=== PATIENT | male | born 1980 | race Caucasian/White ===

== ENCOUNTER 2017-08-08 06:34 | Day surgery (SDC) | payer OTHER ==
[~2017-08-08 06:34] MED LIST: NORCO 5-325 TA1 EACH PO
[2017-08-08] MEDS ORDERED: HYDROXYZINE PAM50 MG PO (06:47)
[2017-08-08] MEDS ORDERED: SERTRALINE HCL100 MG PO (06:47)
[2017-08-08] MEDS ORDERED: ANTACID200 MG PO (06:47)
[2017-08-08] MEDS ORDERED: ADVIL200 MG PO (06:48)
--- NOTE | 2017-08-08 12:39 | NUR ---
08/08/17 1239 Khalida Rivera 1232 PATIENT TO PACU AWAKE, BUT CONFUSED. DOES NOT HOLD STILL TO GET A BLOOD PRESSURE. DOES NOT RATE PAIN ON NUMBER SCALE, BUT DOES NOT COMPLAIN OF PAIN.
[2017-08-08] MEDS ORDERED: MAPAP325 MG PO (12:46)
[2017-08-08] MEDS ORDERED: HYDROCODON-ACE1 EA10 PO (12:46)
[2017-08-08] MEDS ORDERED: IBUPROFEN600 MG PO (12:47)
--- NOTE | 2017-08-08 13:06 | NUR ---
ICED WATER AND APPLESAUCE GIVEN. PT TOLERATES THAT WELL. [facility] OFFICERS REMAIN @ BS.
--- NOTE | 2017-08-08 14:06 | NUR ---
OFFICERS REPORT SEVERAL GLASSES OF WATER FOR PATIENT. PT DENIES URGE TO VOID.
--- NOTE | 2017-08-08 15:01 | NUR ---
OFFICERS REPORT CONTINUED FILLING OF WATER GLASS. EDUCATION DONE W/PATIENT REGARDING URGE TO VOID. PT VERBALIZES UNDERSTANDING.
--- NOTE | 2017-08-08 15:19 | NUR ---
LE 1500: PT UP TO BS W/OFFICER STANDBY. PT VOIDS 600ML CLEAR YELLOW URINE AND DENIES DIZZINESS. VERBAL DC INSTRUCTIONS GIVEN AND PT VERBALIZES UNDERSTANDING. CALL REPORT GIVEN TO ANGELA COOLEY AND HIS QUESTIONS ARE ANSWERED. PT DRESSES W/OFFICER ASSIST AND TRANSFERS SELF WELL TO FOR DC.
--- NOTE | 2017-08-19 13:40 | OR ---
[facility] [address] [place], [place] [address] Signed DATE OF PROCEDURE: 08/08/17 PREOPERATIVE DIAGNOSIS Incarcerated umbilical hernia without strangulation. POSTOPERATIVE DIAGNOSIS Incarcerated umbilical hernia without strangulation (omentum). PROCEDURE Repair of incarcerated umbilical hernia. Implantation of Prolene mesh (underlay technique). SURGEON: Sallie Howe MD. ANESTHESIA General endotracheal, Sallie Fiore ([employer] HEL[employer]) and local 20 mL of 0.25% Marcaine with epinephrine. INDICATION This 37-year-old white man is a patient of Dr. Edward Sharma, at [facility] and was found to have an incompletely reducible hernia at the umbilicus. He has not had an incision in that area. He has undergone right inguinal hernia repair elsewhere without sign of recurrence. The hernia is causing increased symptoms of pain. On that bas is, repair has been recommended. The risks of bleeding, infection, recurrent hernia, and so forth were reviewed in detail. It is anticipated the Prolene mesh would be implanted at time of operation. He understands the risks and wished to proceed. FINDINGS The fascial defect was approximately 3 cm, possibly a bit more. Incompletely reducible omental and properitoneal fat was noted. This was reduced ultimately allowing for clearance of the properitoneal space for at least 3-4 cm circumferentially. Implantation of Prolene mesh in the properitoneal space was undertaken using 0 Prolene suture and Prolene pledgets. The fascial defect was reapproximated transversely with similar technique. There were no complications. Blood loss was minimal. DESCRIPTION OF PROCEDURE The patient was brought to the operating room, given a general endotracheal anesthetic. He received preoperative antibiotic Ancef. Sequential compression device stockings were used and heparin subcutaneously administered. The abdomen was clipped and prepared with Chlorhexidine solution and draped sterilely. A curvilinear incision was made to the left aspect of the nonreducible hernia. Dissection was carried through the dermis sharply and using blunt and electrocautery dissection, the subcutaneous tissue surrounding the Electronically Signed By: SALLIE HOWE MD 08/19/17 1340 PATIENT NAME: SHERON ANAND OPERATIVE REPORT DATE OF : 84 PHYSICIAN: SALLIE HOWE MD REPORT #: [id number] REPORT IS CONFIDENTIAL AND NOT TO BE RELEASED WITHOUT AUTHORIZATION [facility] [address] [place], [place] [address] Signed hernia was undertaken. The fatty tissue appeared to be protruding through the fascial defect. The skin of the umbilicus and its dermal layer was freed from the hernia sac and manipulations of the incarcerated hernia did not readily allow for reduction. A thin membrane in the properitoneal space at the neck of the hernia sac, at the fascial defect which measured approximately 3 cm was then incised. This allowed for blunt dissection circumferentially between the properitoneal space and the over lying fascia. The fatty omentum and properitoneal fat was able to be reduced into the peritoneal cavity at that point. Circumferential freeing of the properitoneal space for at least 3-4 cm was undertaken. A segment of Prolene mesh was cut to a circular co n figuration and secured in an underlay technique with interrupted 0 Prolene sutures with Prolene pledgets. The fascia was transversely reapproximated with interrupted 0 Prolene using Prolene pledgets as well in a horizontal mattress configuration. 20 mL of 0.25% Marcaine with epinephrine was injected locally. Irrigation was undertaken. Dann's layer reapproximated with interrupted 3-0 Vicryl in multiple layers to minimize space and the skin closed with running subcuticular 3-0 Vicryl. Steri-Strips were applied as was Mepilex silver sponge dressing and an OpSite. The patient tolerated the procedure well. Blood loss was minimal. COMPLICATIONS: None. MD SRINIVAS Rockwell/Vasquez /[id number] cc: Edward Sharma MD Electronically Signed By: SALLIE HOWE MD 08/19/17 1340 PATIENT NAME: SHERON ANAND OPERATIVE REPORT DATE OF : 84 PHYSICIAN: SALLIE HOWE MD REPORT #: [id number] REPORT IS CONFIDENTIAL AND NOT TO BE RELEASED WITHOUT AUTHORIZATION
== END 2017-08-08 15:15 | disposition home or self-care (01) ==
LOC: DS 06:34
PROVIDERS: Surgery
PROC: 0WUF0JZ Supplement Abdominal Wall with Synthetic Substitute, Open Approach (ICD-10-PCS; principal; 2017-08-08 09:30)
DX: K42.0 Umbilical hernia with obstruction, without gangrene (principal); I10 Essential (primary) hypertension; K21.9 Gastro-esophageal reflux disease without esophagitis; G43.909 Migraine, unspecified, not intractable, without status migrainosus; F32.9 Major depressive disorder, single episode, unspecified; F41.9 Anxiety disorder, unspecified; Z90.49 Acquired absence of other specified parts of digestive tract; Z88.0 Allergy status to penicillin; Z88.1 Allergy status to other antibiotic agents
CPT/HCPCS: 00750; C1781; J0330; J0690; J1100; J1644; J1885; J2250; J2405; J2704; J2710; J2765; J3010; J7120